=== PATIENT | female | born 1975 | race Caucasian/White ===

== ENCOUNTER 2022-07-22 08:57 | Outpatient (CLI) | payer OTHER, SELFPAY ==
[2022-07-22 13:58] LABS: Albumin* 4.5 g/dL (3.3-5.0); Chloride* 105 mmol/L (96-114)
[2022-07-22 13:59] LABS: Potassium* 4.3 mmol/L (3.6-5.1); Sodium* 137 mmol/L (135-149)
[2022-07-22 14:01] LABS: Alkaline Phosphatase* 58 U/L (40-150); Aspartate Amino Transferase* 22 U/L (12-35); Bilirubin Total* 0.6 mg/dL (0.1-1.5); Blood Urea Nitrogen* 15 mg/dL (5-24); Carbon Dioxide* 23 mmol/L (20-32); Cholesterol* 227 mg/dL (90-199); Creatinine* 0.8 mg/dL (0.5-1.5); Estimated Glomerular Filt Rate 91 ml/min; Glucose* 95 mg/dL (60-115); Total Protein* 6.8 g/dL (6.0-8.3); Triglycerides* 41 mg/dL (40-149)
[2022-07-22 14:02] LABS: Alanine Aminotransferase* 23 U/L (4-35); HDL Cholesterol* 89 mg/dL (>=50); LDL Cholesterol Calculated 130 mg/dL (<100)
[2022-07-22 14:22] LABS: TSH With Reflex to FT4* 0.445 uIU/mL (0.270-4.200)
== END 2022-07-22 08:58 | disposition home or self-care (01) ==
PROVIDERS: PCP Physician Assistant Medical; Visit Provider Physician Assistant Medical
DX: Z00.00 Encounter for general adult medical examination without abnormal findings (principal); R63.5 Abnormal weight gain; E04.1 Nontoxic single thyroid nodule; I10 Essential (primary) hypertension
CPT/HCPCS: 80053; 80061; 84443

== ENCOUNTER 2022-09-20 07:03 | Outpatient (CLI) | payer OTHER, SELFPAY ==
--- NOTE | 2022-09-20 07:15 | CRLHL7_ITS ---
For Patients: As a result of the Century Cures Act, medical imaging exams and procedure reports are released immediately into your electronic medical record. You may view this report before your referring provider. If you have questions, please contact your health care provider. INDICATION: follow up thyroid nodule COMPARISON: 12/20/2021, 01/04/2022 TECHNIQUE: Marin scale and color Doppler images were acquired of the thyroid gland. FINDINGS: Similar size and morphology of solid nodule midportion left thyroid lobe measuring 3.1 x 2.2 x 3.2 cm, previously measuring 3.1 x 1.9 x 3.1 cm. Peripherally calcified nodule upper pole left thyroid lobe measures 8 x 6 x 6 millimeters, previously measuring 6 x 5 x 6 millimeters. Sponge like nodule upper pole right thyroid lobe measures 8 x 5 x 8 millimeters, previously measuring 7 x 5 x 8 millimeters. Solid nodule upper pole right thyroid lobe measures 7 x 5 x 7 millimeters. The right lobe measures 4.6 x 1.8 x 2.0 cm and the left lobe measures 4.9 x 2.6 x 2.8 cm in size. Isthmus measures 4 millimeters. The color Doppler images demonstrate normal vascularity. There is no evidence of cervical lymphadenopathy or parathyroid mass. IMPRESSION: Stable dominant nodule left thyroid lobe measuring 3.2 cm. Dictated by Herbie Rene MD @ 09/20/2022 8:55:18 AM (Electronically Signed)
== END 2022-09-20 07:04 | disposition home or self-care (01) ==
PROVIDERS: PCP Physician Assistant Medical; Visit Provider Physician Assistant Medical
DX: E04.1 Nontoxic single thyroid nodule (principal)
CPT/HCPCS: 76536

== ENCOUNTER 2023-07-09 09:03 | Outpatient (CLI) | payer OTHER, SELFPAY ==
[2023-07-09 16:49] LABS: Chlamydia DNA Amplified* NOT DETECTED (No Detected); GC DNA Amplified* NOT DETECTED (No Detected)
== END 2023-07-09 09:04 | disposition home or self-care (01) ==
PROVIDERS: PCP Physician Assistant Medical; Visit Provider Physician Assistant Medical
DX: Z00.00 Encounter for general adult medical examination without abnormal findings (principal); R63.4 Abnormal weight loss; E04.1 Nontoxic single thyroid nodule; I10 Essential (primary) hypertension; R53.83 Other fatigue; Z11.3 Encounter for screening for infections with a predominantly sexual mode of transmission; Z13.6 Encounter for screening for cardiovascular disorders
CPT/HCPCS: 80053; 80061; 82306; 82728; 84443; 86140; 87491; 87591

== ENCOUNTER 2023-07-15 07:01 | Outpatient (CLI) | payer OTHER, SELFPAY ==
--- NOTE | 2023-07-15 07:15 | CRLHL7_ITS ---
For Patients: As a result of the Century Cures Act, medical imaging exams and procedure reports are released immediately into your electronic medical record. You may view this report before your referring provider. If you have questions, please contact your health care provider. INDICATION: Evaluate IUD placement COMPARISON: none TECHNIQUE: 2D mesa scale and color Doppler images were acquired of the pelvis using a transabdominal and transvaginal approach. FINDINGS: Sonographic images demonstrate a normal size and smooth outer contour of the uterus. Uterus measures 8.5 cm in length by 4.2 cm in AP diameter by 5.5 cm in transverse dimension. Small posterior intramural fibroid is present within the right side of the uterine fundus measuring 8 x 7 x 9 millimeters. Normal position of the IUD within the endometrial canal. The right ovary measures 3.0 x 2.2 x 2.0 cm in size and the left ovary measures 4.4 x 3.7 x 3.4 cm. The ovaries demonstrate normal arterial and venous blood flow on color Doppler analysis. Complex left ovarian cyst measuring 4.0 x 3.4 x 2.5 cm containing numerous internal reticular echoes. There are no suspicious fluid collections within the cul-de-sac. IMPRESSION: Normal position of the IUD within the endometrial canal. Hemorrhagic left ovarian cyst measuring 4.0 x 3.4 x 2.5 cm. Small intramural fibroid measuring 9 millimeters. Dictated by Herbie Rene MD @ 07/15/2023 11:39:01 AM (Electronically Signed)
== END 2023-07-15 07:02 | disposition home or self-care (01) ==
LOC: US 07:02
PROVIDERS: PCP Physician Assistant Medical; Visit Provider Physician Assistant Medical
DX: Z30.431 Encounter for routine checking of intrauterine contraceptive device (principal); N83.202 Unspecified ovarian cyst, left side; D25.1 Intramural leiomyoma of uterus
CPT/HCPCS: 76830; 76856

== ENCOUNTER 2023-07-18 07:08 | Outpatient (CLI) | payer OTHER, SELFPAY ==
--- NOTE | 2023-07-18 07:15 | CRLHL7_ITS ---
For Patients: As a result of the Century Cures Act, medical imaging exams and procedure reports are released immediately into your electronic medical record. You may view this report before your referring provider. If you have questions, please contact your health care provider. INDICATION: Right-sided hearing loss. TECHNIQUE: Multiplanar multisequence MR imaging acquired through the brain and internal auditory canals prior to and following intravenous contrast. COMPARISON: None. FINDINGS: The ventricles and sulci are within normal limits for patient age. No mass effect or midline shift. Punctate FLAIR hyperintensities scattered in the supratentorial white matter, nonspecific. No diffusion restriction to suggest acute infarction. No intracranial hemorrhage or pathologic extra-axial fluid collection. No pathologic intra-axial enhancement. No mass or pathologic enhancement within the internal auditory canals or cerebellopontine angles. No concerning signal abnormalities in the inner ear structures. No vascular loop within the internal auditory canals. Rounded T1 isointensity within the midline sella/suprasellar cistern adjacent to the pituitary infundibulum measuring 5 mm (series 2, image 20). The major arterial flow voids of the skullbase are preserved. The globes are symmetric. Mild paranasal sinus mucosal thickening. Small right mastoid effusion. IMPRESSION: 1. No acute intracranial abnormality. 2. No mass or pathologic enhancement within the internal auditory canals or cerebellopontine angles. 3. Small FLAIR hyperintensities scattered in the supratentorial white matter are nonspecific, though most typical for sequelae of mild chronic microvascular ischemic changes or migraine headaches. 4. Rounded subcentimeter lesion within the sella/suprasellar cistern adjacent to the pituitary infundibulum is nonspecific, though primary differential considerations include Rathke cleft cyst or exophytic microadenoma. Dictated by Jose M Eisenberg MD @ 07/18/2023 12:11:48 PM (Electronically Signed)
== END 2023-07-18 07:09 | disposition home or self-care (01) ==
LOC: MRI 07:08
PROVIDERS: PCP Physician Assistant Medical; Visit Provider Physician Assistant Medical
DX: H91.91 Unspecified hearing loss, right ear (principal); K14.8 Other diseases of tongue
CPT/HCPCS: 70553; A9575

== ENCOUNTER 2023-09-12 07:01 | Outpatient (CLI) | payer OTHER, SELFPAY ==
--- NOTE | 2023-09-12 07:15 | CRLHL7_ITS ---
For Patients: As a result of the Century Cures Act, medical imaging exams and procedure reports are released immediately into your electronic medical record. You may view this report before your referring provider. If you have questions, please contact your health care provider. CLINICAL HISTORY: LT OVARIAN CYST FOLLOW UP Comparison: 07/15/2023 TECHNIQUE: 2D mesa scale and color Doppler images were acquired of the pelvis using a transvaginal approach. FINDINGS: On transvaginal imaging, the myometrium has a heterogeneous echotexture. Previously noted fibroid is not visualized on the current study. The uterus measures 8.2 x 5.1 x 5.8 cm. Intrauterine device is present within the endometrial canal. The left ovary measures 3.1 x 2.1 x 2.1 cm in size and the right ovary measures 3.0 x 1.3 x 2.3 cm. Interval resolution of previously noted left ovarian cyst. The ovaries demonstrate normal arterial and venous blood flow on color Doppler analysis. There are no suspicious fluid collections within the cul-de-sac. IMPRESSION: Interval resolution of previously noted left ovarian cyst. Dictated by Herbie Rene MD @ 09/12/2023 9:51:04 AM (Electronically Signed)
== END 2023-09-12 07:02 | disposition home or self-care (01) ==
LOC: US 07:02
PROVIDERS: PCP Physician Assistant Medical; Visit Provider Physician Assistant Medical
DX: N83.202 Unspecified ovarian cyst, left side (principal)
CPT/HCPCS: 76830

== ENCOUNTER 2024-08-06 08:17 | Outpatient (CLI) | payer OTHER, SELFPAY | END 2024-08-06 08:18 | disposition home or self-care (01) | LOC: NFLDREF 08-08 14:16 | PROVIDERS: PCP Physician Assistant Medical; Referring Provider Physician Assistant Medical; Visit Provider Physician Assistant Medical | DX: Z00.00 Encounter for general adult medical examination without abnormal findings (principal); E04.1 Nontoxic single thyroid nodule; R79.0 Abnormal level of blood mineral; I10 Essential (primary) hypertension; F41.9 Anxiety disorder, unspecified; Z13.6 Encounter for screening for cardiovascular disorders; Z13.0 Encounter for screening for diseases of the blood and blood-forming organs and certain disorders involving the immune mechanism | CPT/HCPCS: 80048; 80061; 82728; 84443; 87086 ==

== ENCOUNTER 2024-10-08 07:06 | Outpatient (CLI) | payer OTHER, SELFPAY ==
--- NOTE | 2024-10-08 07:15 | CRLHL7_ITS ---
For Patients: As a result of the Cures Act, medical imaging exams and procedure reports are released immediately into your electronic medical record. You may view this report before your referring provider. If you have questions, please contact your health care provider. CLINICAL HISTORY: Thyroid nodules Comparison: Ultrasound 09/20/2022 TECHNIQUE: Marin-scale and color Doppler images were acquired of the thyroid gland. FINDINGS: The right lobe measures 5.4 x 1.8 x 1.9 and the left lobe measures 5.9 x 3.6 x 4 centimeters. In size. 1. Hypoechoic right mid 0.9 x 0.7 x 0.9 centimeter nodule not significantly changed TR 4 2. Left isoechoic mid nodule measuring 4.0 x 3.3 by 4 centimeters previously measuring 3.1 x 2.2 x 2.2 centimeters increased in size TR 3. 3. Left superior hypoechoic nodule with peripheral rim calcification measuring 0.7 x 0.6 x 0.7 centimeters not significantly changed TR 4 Additional benign spongiform nodules and colloid cysts. IMPRESSION: Multinodular thyroid. ACR TI-RADS [email or web address] TR1: Benign No FNA TR2: Not Suspicious No FNA TR3: Mildly Suspicious FNA if greater than or equal to 2.5 cm Follow if greater than or equal to 1.5 cm TR4: Moderately Suspicious FNA if greater than or equal to 1.5 cm Follow if greater than or equal to 1 cm TR5: Highly Suspicious FNA if greater than or equal to 1 cm Follow if greater than or equal to 0.5 cm Dictated by Carla Alexandra MD @ 10/08/2024 12:51:07 PM (Electronically Signed)
== END 2024-10-08 07:07 | disposition home or self-care (01) ==
LOC: US 07:08
PROVIDERS: PCP Physician Assistant Medical; Visit Provider Physician Assistant Medical
DX: E04.1 Nontoxic single thyroid nodule (principal)
CPT/HCPCS: 76536

== ENCOUNTER 2024-11-26 08:01 | Outpatient (CLI) | payer OTHER, SELFPAY ==
--- NOTE | 2024-11-26 08:15 | CRLHL7_ITS ---
For Patients: As a result of the Century Cures Act, medical imaging exams and procedure reports are released immediately into your electronic medical record. You may view this report before your referring provider. If you have questions, please contact your health care provider. INDICATION : Left thyroid nodule. TECHNIQUE : Ultrasound-guided fine needle aspiration of thyroid nodule. COMPARISON : 10/08/2024, 09/20/2022, and 12/20/2021 FINDINGS : PROCEDURE: After the informed consent and time-out, multiple fine needle aspirations were obtained from the thyroid nodule. Fine needle performed. 25 gauge needles were used. Lidocaine was used for local anesthesia. The preliminary cytology was adequate for interpretation. Real-time imaging was used for guidance and needle placement. Post imaging ultrasound demonstrates no immediate complication. IMPRESSION : Successful fine needle aspiration of left thyroid nodule. Dictated by Herbie Rene MD @ 11/26/2024 10:05:26 AM (Electronically Signed)
== END 2024-11-26 08:02 | disposition home or self-care (01) ==
LOC: US 08:01
PROVIDERS: PCP Physician Assistant Medical; Visit Provider Surgery
DX: E04.1 Nontoxic single thyroid nodule (principal)
CPT/HCPCS: 10005; 76942; 88173

== ENCOUNTER 2025-05-27 09:10 | Outpatient (CLI) | payer OTHER, SELFPAY | END 2025-05-27 09:11 | disposition home or self-care (01) | PROVIDERS: PCP Physician Assistant Medical; Visit Provider Family Medicine | DX: I10 Essential (primary) hypertension (principal); R79.0 Abnormal level of blood mineral; R53.83 Other fatigue; E04.1 Nontoxic single thyroid nodule | CPT/HCPCS: 80048; 82728; 85018 ==

== ENCOUNTER 2025-06-10 08:29 | Outpatient (CLI) | payer OTHER, SELFPAY | END 2025-06-10 08:30 | disposition home or self-care (01) | PROVIDERS: PCP Physician Assistant Medical; Visit Provider Registered Nurse | DX: N95.1 Menopausal and female climacteric states (principal); R53.83 Other fatigue; R79.0 Abnormal level of blood mineral; I10 Essential (primary) hypertension; E04.1 Nontoxic single thyroid nodule | CPT/HCPCS: 82306; 84443 ==

== ENCOUNTER 2025-08-19 08:18 | Outpatient (CLI) | payer OTHER, SELFPAY | END 2025-08-19 08:19 | disposition home or self-care (01) | LOC: NFLDREF 08:20 | PROVIDERS: PCP Family Medicine; Visit Provider Registered Nurse | DX: F52.0 Hypoactive sexual desire disorder (principal); N95.1 Menopausal and female climacteric states | CPT/HCPCS: 84270; 84402; 84403 ==

== ENCOUNTER 2025-09-09 08:58 | Outpatient (CLI) | payer OTHER, SELFPAY ==
--- NOTE | 2025-09-09 09:15 | CRLHL7_ITS ---
For Patients: As a result of the Cures Act, medical imaging exams and procedure reports are released immediately into your electronic medical record. You may view this report before your referring provider. If you have questions, please contact your health care provider. BILATERAL DIGITAL SCREENING MAMMOGRAM WITH COMPUTER-AIDED DETECTION AND TOMOSYNTHESIS CLINICAL HISTORY: Routine screening exam. COMPARISON: Mammograms 10/12/2021, 04/28/2018 and 04/23/2016. TECHNIQUE: Digital mammogram in CC and MLO projections including computer-aided detection (CAD) and tomosynthesis. BREAST COMPOSITION: The breasts are heterogeneously dense, which may obscure small masses. FINDINGS: RIGHT Breast: No suspicious findings. LEFT Breast: There is a mass in the upper inner breast, 4 cm from the nipple. IMPRESSION: LEFT breast mass. RECOMMENDATIONS: Additional mammographic views of the LEFT breast including a 90-degree lateral view and spot compression views in CC and MLO projections tomosynthesis. LEFT breast ultrasound may also be required. The [facility] will contact the patient for follow-up. BI-RADS Category 0: Incomplete: Need Additional Imaging Evaluation A lay language report of this examination will be provided to the patient Dictated by Samantha Munoz MD @ 09/09/2025 2:34:29 PM /sp SP/Dictated by: Samantha Munoz MD @ 09/09/2025 2:34:00 PM (Electronically Signed)
== END 2025-09-09 08:59 | disposition home or self-care (01) ==
LOC: MAMMO 08:59
PROVIDERS: PCP Family Medicine; Visit Provider Family Medicine
DX: Z12.31 Encounter for screening mammogram for malignant neoplasm of breast (principal); N63.20 Unspecified lump in the left breast, unspecified quadrant
CPT/HCPCS: 77063; 77067

== ENCOUNTER 2025-09-14 10:36 | Outpatient (CLI) | payer OTHER, SELFPAY ==
--- NOTE | 2025-09-14 10:45 | CRLHL7_ITS ---
For Patients: As a result of the Cures Act, medical imaging exams and procedure reports are released immediately into your electronic medical record. You may view this report before your referring provider. If you have questions, please contact your health care provider. LEFT BREAST DIAGNOSTIC MAMMOGRAM WITH COMPUTER-AIDED DETECTION AND TOMOSYNTHESIS LEFT BREAST ULTRASOUND CLINICAL HISTORY: LEFT breast mass/asymmetry. COMPARISON: 10/12/2021, 04/28/2018, 04/23/2016. TECHNIQUE: Digital LEFT mammogram in three projections. Computer-aided detection and tomosynthesis were used in this interpretation. Real-time ultrasound imaging of LEFT breast with imaging documentation. Scanning was performed by both the technologist and the radiologist. BREAST COMPOSITION: The breasts are heterogeneously dense, which may obscure small masses. FINDINGS: Additional mammogram images LEFT breast submitted. Persistent nodular density is present within the upper LEFT breast without architectural distortion or suspicious calcification. Targeted LEFT breast ultrasound performed. At 12 o`clock, 4 cm from the nipple, there is a simple circumscribed anechoic cyst which measures 12 x 6 x 13 mm. Smaller adjacent cysts are present. An adjacent fibroadenoma is also noted which measures 5 x 4 x 6 mm. IMPRESSION: No suspicious findings. No evidence of malignancy. RECOMMENDATIONS: Routine screening mammography. A lay language report of this examination will be provided to the patient. BI-RADS Category 2: Benign Dictated by Herbie Rene MD @ 09/14/2025 11:31:37 AM /sp SP/Dictated by: Herbie Rene MD @ 09/14/2025 11:31:00 AM (Electronically Signed)
--- NOTE | 2025-09-14 11:15 | CRLHL7_ITS ---
For Patients: As a result of the Century Cures Act, medical imaging exams and procedure reports are released immediately into your electronic medical record. You may view this report before your referring provider. If you have questions, please contact your health care provider. PLEASE SEE LEFT BREAST DIAGNOSTIC MAMMOGRAM PERFORMED SAME DAY. CRL:sp SP/Dictated by: Herbie Rene MD @ 09/14/2025 11:30:00 AM (Electronically Signed)
== END 2025-09-14 10:37 | disposition home or self-care (01) ==
LOC: MAMMO 10:36
PROVIDERS: PCP Family Medicine; Visit Provider Family Medicine
DX: N63.20 Unspecified lump in the left breast, unspecified quadrant (principal); R92.333 Mammographic heterogeneous density, bilateral breasts; R92.8 Other abnormal and inconclusive findings on diagnostic imaging of breast
CPT/HCPCS: 76642; 77065; G0279